=== PATIENT | female | born 1985 | race Caucasian/White ===

== ENCOUNTER 2017-07-14 04:37 | Inpatient (IN) | payer OTHER ==
[2017-07-14] VITALS (15 sets, daily range): BP systolic 92–117; BP diastolic 59–80; PULSE 54–174; RESP 16–20; TEMP 97.6–97.9; O2SAT 97–99
[~2017-07-14] VITALS: Ht 157.5 cm; Wt 61.7 kg
[2017-07-14] MEDS ORDERED: LACTATED RINGER'S 1000 ML INJ 1,000 ML IV PRN (04:58)
[2017-07-14] MEDS ORDERED: LACTATED RINGER'S 1000 ML INJ 1,000 ML IV SCH (04:58)
[2017-07-14] MEDS ORDERED: MINERAL OIL 10 ML VIAL TOPICAL PRN (05:00)
[2017-07-14] MEDS ORDERED: LIDOCAINE HCL 1% 50 ML VIAL INFIL PRN (05:00)
[2017-07-14] MEDS ORDERED: LIDOCAINE HCL 1% 50 ML VIAL I-DERMAL PRN (05:00)
[2017-07-14] MEDS ORDERED: SODIUM CHLORID 0.9% 500 ML INJ 500 ML IV PRN (05:00)
[2017-07-14] MEDS ORDERED: OXYTOCIN 30 UNITS-500ML PREMIX 500 ML IV ONE (05:00)
[2017-07-14] MEDS ORDERED: SODIUM CHLOR 0.9% 1000 ML INJ 1,000 ML IV PRN (05:18)
[2017-07-14] MEDS ORDERED: ONDANSETRON ODT 4 MG TAB PO PRN (05:30)
[2017-07-14] MEDS ORDERED: OXYTOCIN 30 UNITS-500ML PREMIX 500 ML IV SCH (05:30)
[2017-07-14] MEDS ORDERED: ACETAMINOPHEN 325 MG TAB PO PRN (05:30)
[2017-07-14] MEDS ORDERED: BENZOCAINE 20% TOPICAL SPRAY 60 ML CAN TOPICAL PRN (05:30)
[2017-07-14] MEDS ORDERED: DOCUSATE SODIUM 50 MG/SENNA 8.6 MG TAB PO PRN (05:30)
[2017-07-14] MEDS ORDERED: WITCH HAZEL 50%/GLYCERIN 12.5% 40 PAD JAR TOPICAL PRN (05:30)
[2017-07-14] MEDS ORDERED: ZOLPIDEM TARTRATE 5 MG TAB PO PRN (05:30)
[2017-07-14] MEDS ORDERED: SODIUM CHLORIDE 0.9% FLUSH 10 ML FLUSH IV FLUSH PRN (05:30)
[2017-07-14] MEDS ORDERED: ALUMINUM/MAGNESIUM/SIMETH 30 ML CUP PO PRN (05:30)
[2017-07-14 05:41] LABS: AUTOMATED NEUTROPHIL # 14.5 TH/MM3 (1.8-7.7); BASOPHIL # 0.1 TH/MM3 (0-0.2); BASOPHIL % 0.5 % (0.0-2.0); EOSINOPHIL # 0.1 TH/MM3 (0-0.4); EOSINOPHIL % 0.6 % (0.0-4.0); HEMATOCRIT 34.2 % (35.0-46.0); LYMPH % 19.4 % (9.0-44.0); MEAN CELL VOLUME 98.2 FL (80.0-100.0); MEAN CORPUSCULAR HEMOGLOBIN 34.5 PG (27.0-34.0); MEAN CORPUSCULAR HGB CONC 35.1 % (32.0-36.0); MEAN PLATELET VOLUME 8.8 FL (7.0-11.0); MONO % 8.8 % (0.0-8.0); MONOCYTE # 1.8 TH/MM3 (0-0.9); NEUT % 70.7 % (16.0-70.0); PLATELET COUNT 237 TH/MM3 (150-450); RED BLOOD COUNT 3.48 MIL/MM3 (4.00-5.30); WHITE BLOOD COUNT 20.5 TH/MM3 (4.0-11.0)
--- NOTE | 2017-07-14 05:46 | HHI.HP ---
HPI Chief Complaint Active labor Date Seen: Jul 14, 2017 Travel History International Travel<30 Days: No Contact w/Intl Traveler<30Days: No Known Affected Area: No History of Present Illness HPI Patient is a female who presents in active labor. She has received care in [place], [place]; established three months into her . She denies complications during the except for swelling of her extremities over the last few weeks. Weeks Gestation: 38 Para: 6 : 11 Miscarriage: 4 History Past Medical History Narrative Medical Anxiety PTSD MS Rosas Obstetric History Obstetric History G1 - full-term, induced, vaginal delivery, no complications G2 - miscarriage G3 - full-term, induced, vaginal delivery, no complications G4 - miscarriage G5 - full-term, vaginal delivery, no complications G6 - full-term, induced, vaginal delivery, no complications G7 - full-term, induced, vaginal delivery, infant with collapsed lung and hole in heart G8 - full-term, vaginal delivery, no complications G9 - miscarriage G10 - miscarriage G11 - current Past Surgical History Narrative Surgical Ear tubes x2 in childhood Family History Family History: Negative Social History Alcohol Use: No Tobacco Use: Yes (up to 1/2 pack/day) Substance Abuse: Yes (marijuana ) Allergies-Medications (Allergen,Severity, Reaction): Coded Allergies: No Known Allergies (Unverified , 07/14/17) Narrative Medication Vitamin B12 Potassium vitamin Review of Systems Except as stated in HPI: all other systems reviewed are Neg Physical Exam Vital Signs Date Time Temp Pulse Resp B/P (MAP) Pulse Ox O2 Delivery O2 Flow Rate FiO2 07/14/17 05:31 174 96/80 (85) 07/14/17 05:30 20 07/14/17 05:21 67 117/72 (87) Narrative GENERAL: Well-nourished, well-developed patient. SKIN: Warm and dry. HEAD: Normocephalic and atraumatic. EYES: No scleral icterus. No injection or drainage. ENT: No nasal drainage noted. Mucous membranes pink. Airway patent. NECK: Supple, trachea midline. No JVD. CARDIOVASCULAR: Regular rate and rhythm without murmurs, gallops, or rubs. RESPIRATORY: Breath sounds equal bilaterally. No accessory muscle use. BREASTS: Bilateral exam showed no masses , no retractions, no nipple discharge. ABDOMEN/GI: Abdomen soft, non-tender, bowel sounds present, no rebound, no guarding Gravid to 38 weeks size GENITOURINARY at admission: External Genitalia: intact and normal in appearance Dilatation: 10 cm Effacement: Complete Membranes: Intact FHT's: Category: 1 Baseline: 130 Reactive: + Variability: Moderate Decels: None EXTREMITIES: No cyanosis or edema. BACK: Nontender without obvious deformity. NEUROLOGICAL: Awake and alert. Motor and sensory grossly within normal limits. Five out of 5 muscle strength in all muscle groups. Normal speech. Caprini VTE Risk Assessment Caprini VTE Risk Assessment: No/Low Risk (score <= 1) Caprini Risk Assessment Model Point Value = 1 Point Value = 2 Point Value = 3 Point Value = 5 Age 41-60 Minor surgery BMI > 25 kg/m2 Swollen legs Varicose veins or History of unexplained or recurrent spontaneous Oral contraceptives or hormone replacement Sepsis (< 1 month) Serious lung disease, including pneumonia (< 1 month) Abnormal pulmonary function Acute myocardial infarction Congestive heart failure (< 1 month) History of inflammatory bowel disease Medical patient at bed rest Age 61-74 Arthroscopic surgery Major open surgery (> 45 min) Laparoscopic surgery (> 45 min) Malignancy Confined to bed (> 72 hours) Immobilizing plaster cast Central venous access Age >= 75 History of VTE Family history of VTE Factor V Leiden Prothrombin [id number] Lupus anticoagulant Anticardiolipin antibodies Elevated serum homocysteine Heparin-induced thrombocytopenia Other congenital or acquired thrombophilia Stroke (< 1 month) Elective arthroplasty Hip, pelvis, or leg fracture Acute spinal cord injury (< 1 month) Prophylaxis Regimen Total Risk Factor Score Risk Level Prophylaxis Regimen 0-1 Low Early ambulation 2 Moderate Order ONE of the following: *Sequential Compression Device (SCD) *Heparin 5000 units SQ BID 3-4 Higher Order ONE of the following medications: *Heparin 5000 units SQ TID *Enoxaparin/Lovenox 40 mg SQ daily (WT < 150 kg, CrCl > 30 mL/min) *Enoxaparin/Lovenox 30 mg SQ daily (WT < 150 kg, CrCl > 10-29 mL/min) *Enoxaparin/Lovenox 30 mg SQ BID (WT < 150 kg, CrCl > 30 mL/min) AND/OR *Sequential Compression Device (SCD) 5 or more Highest Order ONE of the following medications: *Heparin 5000 units SQ TID (Preferred with Epidurals) *Enoxaparin/Lovenox 40 mg SQ daily (WT < 150 kg, CrCl > 30 mL/min) *Enoxaparin/Lovenox 30 mg SQ daily (WT < 150 kg, CrCl > 10-29 mL/min) *Enoxaparin/Lovenox 30 mg SQ BID (WT < 150 kg, CrCl > 30 mL/min) AND *Sequential Compression Device (SCD) Data Data Vital Signs Reviewed: Yes Orders Orders Ob (2e) Additional Admit Info (07/14/17 04:40) Admit To Inpatient (07/14/17 ) Vital Signs (Adult) .Per protocol (07/14/17 04:58) Heart (07/14/17 04:58) Amnioinfusion (07/14/17 04:58) Urinary Catheter Management .ONCE (07/14/17 04:58) Lactated Ringer's 1000 Ml Inj (Lr 1000 M (07/14/17 04:58) Lactated Ringer's 1000 Ml Inj (Lr 1000 M (07/14/17 04:58) Sodium Chlorid 0.9% 500 Ml Inj (Ns 500 M (07/14/17 05:00) Sodium Chlor 0.9% 1000 Ml Inj (Ns 1000 M (07/14/17 05:18) Lidocaine 1% Inj (50 Ml) (Xylocaine 1% I (07/14/17 05:00) Fentanyl Inj (Fentanyl Inj) (07/14/17 05:00) Fentanyl Inj (Fentanyl Inj) (07/14/17 05:00) Complete Blood Count With Diff (07/14/17 04:58) Hold Clot (07/14/17 04:58) Abo/Rh Blood Type (07/14/17 04:58) Urinalysis - C+S If Indicated (07/14/17 04:58) Drug Screen, Random Urine (07/14/17 04:58) Resp Oxygen Non Rebreathe Mask (07/14/17 ) ^ Epidural / Intrathecal Infus (07/14/17 04:58) Oxytocin 30 Units-500ml Premix (Pitocin (07/14/17 05:00) Lidocaine 1% Inj (50 Ml) (Xylocaine 1% I (07/14/17 05:00) Light Mineral Oil (Muri-Lube Oil) (07/14/17 05:00) Specimen To Be Collected PRN (07/14/17 04:58) Specimen To Be Collected PRN (07/14/17 04:58) Vital Signs (Adult) .QSHIFT (07/14/17 05:30) Activity Oob Ad Kim (07/14/17 05:30) Ice / Cold Pack PRN (07/14/17 05:30) Discontinue Iv (07/14/17 05:30) Sitz Bath PRN (07/14/17 05:30) ^ Massage (07/14/17 05:30) ^ Rhogam (07/14/17 05:30) Urinary Catheter Management .PRN (07/14/17 05:30) Diet Regular Basic (07/14/17 Breakfast) Sodium Chloride 0.9% Flush (Ns Flush) (07/14/17 09:00) Sodium Chloride 0.9% Flush (Ns Flush) (07/14/17 05:30) Oxytocin 30 Units-500ml Premix (Pitocin (07/14/17 05:30) Acetaminophen (Tylenol) (07/14/17 05:30) Ibuprofen (Motrin) (07/14/17 05:30) Oxycodone-Acetamin 5-325 Mg (Percocet (07/14/17 05:30) Oxycodone-Acetamin 5-325 Mg (Percocet (07/14/17 05:30) Benzocaine 20% Top Spr (Americaine 20% T (07/14/17 05:30) Witch Abby-Glycerin Pad (Tucks Pads) (07/14/17 05:30) Docusate Sodium-Senna (Isabella-Colace) (07/14/17 05:30) Zolpidem (Ambien) (07/14/17 05:30) Yndlkeo-Zxyrq-Sbnysdt Inj (M-M-R Ii Inj) (07/14/17 16:00) Ewpv-Zfy-Hlgicg (Booster) Inj (Boostrix (07/14/17 16:00) Al-Mag Hy-Si 40-40-4 Mg/Ml Liq (Mag-Al P (07/14/17 05:30) Ondansetron Odt (Zofran Odt) (07/14/17 05:30) Labs Group B Strep unknown Laboratory Tests Test 07/14/17 04:50 White Blood Count 20.5 Red Blood Count 3.48 Hemoglobin 12.0 Hematocrit 34.2 Mean Corpuscular Volume 98.2 Mean Corpuscular Hemoglobin 34.5 Mean Corpuscular Hemoglobin Concent 35.1 Red Cell Distribution Width 13.0 Platelet Count 237 Mean Platelet Volume 8.8 Neutrophils (%) (Auto) 70.7 Lymphocytes (%) (Auto) 19.4 Monocytes (%) (Auto) 8.8 Eosinophils (%) (Auto) 0.6 Basophils (%) (Auto) 0.5 Neutrophils # (Auto) 14.5 Lymphocytes # (Auto) 4.0 Monocytes # (Auto) 1.8 Eosinophils # (Auto) 0.1 Basophils # (Auto) 0.1 CBC Comment DIFF FINAL Differential Comment Assessment/Plan Assessment and Plan Patient is a female who presents in active labor. She has received care in [place], [place]; established three months into her . * Admit to L&D in active labor. Discussed with OB hospitalist. Jayleen Mcclain MD R1 Jul 14, 2017 05:46
[2017-07-14] MEDS: IBUPROFEN 800 MG TAB PO PRN ×2 (05:47→19:26)
--- NOTE | 2017-07-14 05:49 | PD.OB.DELI ---
Weeks gestation: 38 Gest age assessed date: Jul 14, 2017 Pt started active labor?: Yes Active labor start date: Jul 14, 2017 Medical induction of labor?: No Artificial rupture of membrane: No Anesthesia: None Episiotomy: None Vaginal Delivery: Normal Presentation: Vertex Nuchal Cord: None Infant: Female Delivery date: Jul 14, 2017 Delivery time: 05:18 One Minute : 8 Five Minute : 9 Weight: 2655g Placenta: Spontaneous delivery, Intact, 3 vessel cord Laceration: No lacerations Estimated blood loss: 150 mL Jayleen Mcclain MD R1 Jul 14, 2017 05:49
--- NOTE | 2017-07-14 06:10 | HHI.FPPN ---
Addendum to progress note ADDENDUM Reason for addendum: Additonal documentation Additional information Patient O negative. She did not receive Rhogam during . Jayleen Mcclain MD R1 Jul 14, 2017 06:10
[2017-07-14] MEDS: SODIUM CHLORIDE 0.9% FLUSH 10 ML FLUSH IV FLUSH SCH (06:59)
[2017-07-14] MEDS: NICOTINE 14 MG/24 HR PATCH T-DERMAL SCH (11:34)
[2017-07-14] MEDS: oxyCODONE/ACETAMINOPHEN 5 MG/325 MG TAB PO PRN ×2 (11:34→22:36)
[2017-07-14 15:17] LABS: BACTERIA, URINE OCC /hpf; BILIRUBIN, URINE NEG (NEG); BLOOD, URINE LARGE (NEG); GLUCOSE,URINE NEG (NEG); KETONE, URINE NEG (NEG); MUCUS URINE FEW /lpf (OCC); NITRITE,URINE NEG (NEG); SQUAMOUS EPITHELIAL CELL URINE <1 /hpf (0-5); URINE LEUKOCYTE ESTERASE LARGE (NEG); WHITE BLOOD CELL CLUMPS RARE
[2017-07-14 15:18] LABS: URINE COLOR LIGHT-RED (YELLW/STRAW)
[2017-07-14] MEDS ORDERED: DIPHTH/TETANUS/ACEL PERTUSSIS (BOOSTER) 0.5 ML VIAL/PFS IM ONE (16:00)
[2017-07-14] MEDS ORDERED: MEASLES, MUMPS, RUBELLA VACCINE 0.5 ML VIAL SQ ONE (16:00)
[2017-07-14] MEDS ORDERED: REMOVE OLD PATCH T-DERMAL SCH (21:00)
[2017-07-15] MEDS: oxyCODONE/ACETAMINOPHEN 5 MG/325 MG TAB PO PRN ×4 (06:16→21:11)
[2017-07-15] MEDS: IBUPROFEN 800 MG TAB PO PRN ×2 (06:16→16:02)
[2017-07-15 08:00] VITALS: BP 91/56; PULSE 65; RESP 16; TEMP 98; O2SAT 98
--- NOTE | 2017-07-15 08:08 | HHI.OB ---
Subjective Post Day: 1 Remarks Pt seen and examined this morning. day # 1 AFVSS overnight. Decreased lochia. Denies dysuria. No breast tenderness. She is feeding the baby via breast. Appetite good. No nausea or vomiting. Patient has had a bowel movement and continues to pass bowel gas. Ambulating well. Denies calf pain or shortness of breath. Otherwise, she is doing well this morning and has no other concerns. Objective Vitals/I&O Vital Signs Date Time Temp Pulse Resp B/P (MAP) Pulse Ox O2 Delivery O2 Flow Rate FiO2 07/14/17 20:00 97.9 59 16 96/60 (70) 97 Objective Remarks GENERAL: Well-nourished, well-developed patient. CARDIOVASCULAR: Regular rate and rhythm without murmurs, gallops, or rubs. RESPIRATORY: Breath sounds equal bilaterally. No accessory muscle use. ABDOMEN/GI: Abdomen soft, non-tender. Fundus: Firm, non-tender at umbilicus. GENITOURINARY: Light to moderate bleeding. EXTREMITIES: No cyanosis or edema, non-tender, without signs of DVT. Medications and IVs Current Medications Medications (Trade) Dose Ordered Sig/Lupe Route Start Time Stop Time Status Last Admin Lactated Ringer's 1,000 ml @ 125 mls/hr Q8H IV 07/14/17 04:58 07/14/17 04:48 Lactated Ringer's 1,000 ml @ 3,000 mls/hr Q20M PRN IV 07/14/17 04:58 Sodium Chloride 1,000 ml @ 100 mls/hr Q10H PRN IV 07/14/17 05:18 (Xylocaine 1% Inj (50 ml)) 0.1 ml UNSCH X1 PRN I-DERMAL 07/14/17 05:00 07/17/17 04:59 (fentaNYL INJ) 50 mcg Q1H PRN IV PUSH 07/14/17 05:00 (fentaNYL INJ) 100 mcg Q1H PRN IV PUSH 07/14/17 05:00 (Xylocaine 1% Inj (50 ml)) 10 ml UNSCH X1 PRN INFIL 07/14/17 05:00 07/16/17 04:59 (Muri-Lube Oil) 10 ml UNSCH PRN TOPICAL 07/14/17 05:00 (NS Flush) 2 ml BID IV FLUSH 07/14/17 09:00 07/14/17 06:59 (NS Flush) 2 ml UNSCH PRN IV FLUSH 07/14/17 05:30 (Tylenol) 650 mg Q4H PRN PO 07/14/17 05:30 07/14/17 05:48 (Motrin) 800 mg Q8H PRN PO 07/14/17 05:30 07/15/17 06:16 (Percocet 5-325 Mg) 1 tab Q4H PRN PO 07/14/17 05:30 07/15/17 06:16 (Percocet 5-325 Mg) 2 tab Q4H PRN PO 07/14/17 05:30 07/14/17 22:36 (Americaine 20% Top Spr) 1 spray Q4H PRN TOPICAL 07/14/17 05:30 07/14/17 11:34 (Tucks Pads) 1 applic QID PRN TOPICAL 07/14/17 05:30 07/14/17 11:34 (Isabella-Colace) 2 tab Q12H PRN PO 07/14/17 05:30 07/14/17 11:34 (Ambien) 5 mg HS PRN PO 07/14/17 05:30 (Mag-Al Plus Susp Liq) 15 ml Q8H PRN PO 07/14/17 05:30 (Zofran Odt) 4 mg Q6H PRN PO 07/14/17 05:30 (Habitrol 14 Mg Patch.24 Hr) 1 patch DAILY T-DERMAL 07/14/17 11:30 07/14/17 11:34 Miscellaneous Information 1 HS T-DERMAL 07/14/17 21:00 Assessment/Plan Problem List: (1) (spontaneous vaginal delivery) ICD Codes: O80 - Encounter for full-term uncomplicated delivery Status: Acute Assessment and Plan 31y/o female who is day # 1 s/p . -Continue routine care. -Percocet and Motrin PRN pain. -Encouraged OOB. Advised pelvic rest for 6 wks. -Re: ctrl, she would like to discuss her options at her follow-up appointment. -Anticipate discharge today versus tomorrow pending clinical course. billy Mixon MD Discharge Planning Today versus tomorrow pending clinical course Isiah George MD R2 Jul 15, 2017 08:08
[2017-07-15] MEDS: NICOTINE 14 MG/24 HR PATCH T-DERMAL SCH (10:33)
[2017-07-15 20:00] VITALS: BP 86/56; PULSE 71; RESP 18; TEMP 99.2
[2017-07-15 20:31] LABS: AUTOMATED NEUTROPHIL # 7.6 TH/MM3 (1.8-7.7); BASOPHIL # 0.1 TH/MM3 (0-0.2); BASOPHIL % 0.7 % (0.0-2.0); EOSINOPHIL # 0.1 TH/MM3 (0-0.4); HEMOGLOBIN 10.4 GM/DL (11.6-15.3); LYMPH % 27.7 % (9.0-44.0); LYMPHOCYTE # 3.4 TH/MM3 (1.0-4.8); MEAN CELL VOLUME 99.2 FL (80.0-100.0); MEAN CORPUSCULAR HEMOGLOBIN 34.4 PG (27.0-34.0); MEAN CORPUSCULAR HGB CONC 34.7 % (32.0-36.0); MEAN PLATELET VOLUME 8.8 FL (7.0-11.0); MONOCYTE # 1.1 TH/MM3 (0-0.9); NEUT % 61.6 % (16.0-70.0); PLATELET COUNT 216 TH/MM3 (150-450); RED BLOOD COUNT 3.03 MIL/MM3 (4.00-5.30); RED CELL DISTRIBUTION WIDTH 13.1 % (11.6-17.2); WHITE BLOOD COUNT 12.4 TH/MM3 (4.0-11.0)
[2017-07-16] MEDS: IBUPROFEN 800 MG TAB PO PRN ×2 (04:20→10:38)
[2017-07-16] MEDS: oxyCODONE/ACETAMINOPHEN 5 MG/325 MG TAB PO PRN ×3 (04:20→16:56)
--- NOTE | 2017-07-16 07:44 | HHI.OB ---
Subjective Post Day: 2 Remarks Pt seen and examined this morning. day # 2 AFVSS overnight. Decreased lochia. Denies dysuria. No breast tenderness. She is feeding the baby via breast and bottle. Appetite good. No nausea or vomiting. Patient endorses having a bowel movement and continues to pass bowel gas. Ambulating well. Denies calf pain or shortness of breath. Otherwise, she is doing well this morning and has no other concerns. Objective Vitals/I&O Vital Signs Date Time Temp Pulse Resp B/P (MAP) Pulse Ox O2 Delivery O2 Flow Rate FiO2 07/15/17 20:00 99.2 71 18 86/56 (66) 07/15/17 08:00 98.0 65 16 91/56 (68) 98 Objective Remarks GENERAL: Well-nourished, well-developed patient. CARDIOVASCULAR: Regular rate and rhythm without murmurs, gallops, or rubs. RESPIRATORY: Breath sounds equal bilaterally. No accessory muscle use. ABDOMEN/GI: Abdomen soft, non-tender. Fundus: Firm, non-tender at umbilicus. GENITOURINARY: Light to moderate bleeding. EXTREMITIES: No cyanosis or edema, non-tender, without signs of DVT. Medications and IVs Current Medications Medications (Trade) Dose Ordered Sig/Lupe Route Start Time Stop Time Status Last Admin Lactated Ringer's 1,000 ml @ 125 mls/hr Q8H IV 07/14/17 04:58 07/14/17 04:48 Lactated Ringer's 1,000 ml @ 3,000 mls/hr Q20M PRN IV 07/14/17 04:58 Sodium Chloride 1,000 ml @ 100 mls/hr Q10H PRN IV 07/14/17 05:18 (Xylocaine 1% Inj (50 ml)) 0.1 ml UNSCH X1 PRN I-DERMAL 07/14/17 05:00 07/17/17 04:59 (fentaNYL INJ) 50 mcg Q1H PRN IV PUSH 07/14/17 05:00 (fentaNYL INJ) 100 mcg Q1H PRN IV PUSH 07/14/17 05:00 (Muri-Lube Oil) 10 ml UNSCH PRN TOPICAL 07/14/17 05:00 (NS Flush) 2 ml BID IV FLUSH 07/14/17 09:00 07/14/17 06:59 (NS Flush) 2 ml UNSCH PRN IV FLUSH 07/14/17 05:30 (Tylenol) 650 mg Q4H PRN PO 07/14/17 05:30 07/14/17 05:48 (Motrin) 800 mg Q8H PRN PO 07/14/17 05:30 07/16/17 04:20 (Percocet 5-325 Mg) 1 tab Q4H PRN PO 07/14/17 05:30 07/15/17 16:02 (Percocet 5-325 Mg) 2 tab Q4H PRN PO 07/14/17 05:30 07/16/17 04:20 (Americaine 20% Top Spr) 1 spray Q4H PRN TOPICAL 07/14/17 05:30 07/14/17 11:34 (Tucks Pads) 1 applic QID PRN TOPICAL 07/14/17 05:30 07/14/17 11:34 (Isabella-Colace) 2 tab Q12H PRN PO 07/14/17 05:30 07/14/17 11:34 (Ambien) 5 mg HS PRN PO 07/14/17 05:30 (Mag-Al Plus Susp Liq) 15 ml Q8H PRN PO 07/14/17 05:30 (Zofran Odt) 4 mg Q6H PRN PO 07/14/17 05:30 (Habitrol 14 Mg Patch.24 Hr) 1 patch DAILY T-DERMAL 07/14/17 11:30 07/15/17 10:33 Miscellaneous Information 1 HS T-DERMAL 07/14/17 21:00 Assessment/Plan Problem List: (1) (spontaneous vaginal delivery) ICD Codes: O80 - Encounter for full-term uncomplicated delivery Status: Acute Assessment and Plan 31y/o female who is day #2 s/p . -Continue routine care. -Percocet and Motrin PRN pain. -Encouraged OOB. Advised pelvic rest for 6 wks. -Re: ctrl, she would like to discuss her options at her follow-up appointment. -Anticipate discharge today dw Dr. Mimi MD Discharge Planning Today Isiah George MD R2 Jul 16, 2017 07:44
[2017-07-16] MEDS ORDERED: IBUP1TAB7 PO (07:45)
[2017-07-16] MEDS ORDERED: PERI PO (07:45)
--- NOTE | 2017-07-16 07:45 | HHI.DCPOC ---
Discharge Care Plan Diagnosis: (1) (spontaneous vaginal delivery) Report Symptoms to Your Doctor -Temperature above 100.5 degrees -Redness, of incision or excessive or foul smelling drainage -Unusual pain or calf pain -Increased vaginal bleeding -Painful or difficulty urinating -Feelings of extreme sadness or anxiety after 2 weeks Goals to Promote Your Health * To prevent worsening of your condition and complications * To maintain your health at the optimal level Directions to Meet Your Goals Take your medications as prescribed Follow your dietary instruction Follow activity as directed Ensure plenty of rest for recovery Drink fluids for hydration Keep your appointments as scheduled Take your immunizations and boosters as scheduled If your symptoms worsen call your PCP, if no PCP go to Urgent Care Center or Emergency Room Smoking is Dangerous to Your Health. Avoid second hand smoke Call the 24-hour crisis hotline for domestic abuse at Isiah George MD R2 Jul 16, 2017 07:45
[2017-07-16 08:00] VITALS: BP 97/62; PULSE 70; RESP 16; TEMP 98.1
[2017-07-16] MEDS: SODIUM CHLORIDE 0.9% FLUSH 10 ML FLUSH IV FLUSH SCH (09:00)
[2017-07-16 10:02] LABS: HEPATITIS A AB IGM NEGATIVE (NEGATIVE); HEPATITIS B CORE AB IGM NEGATIVE (NEGATIVE); HEPATITIS B SURFACE ANTIGEN NEGATIVE (NEGATIVE); HEPATITIS C AB IgG NEGATIVE (NEGATIVE)
[2017-07-16] MEDS: NICOTINE 14 MG/24 HR PATCH T-DERMAL SCH (10:38)
== END 2017-07-16 16:57 | disposition home or self-care (01) | DRG 775 ==
LOC: HOBED 04:37 → H2EB 04:42 → H1EA 07:37
PROVIDERS: ADMIT Obstetrics & Gynecology Maternal & Fetal Medicine; ATTEND Obstetrics & Gynecology Maternal & Fetal Medicine
PROC: 10E0XZZ Delivery of Products of Conception, External Approach (ICD-10-PCS; principal; 2017-07-14)
DX: O99.344 Other mental disorders complicating childbirth (principal); F43.10 Post-traumatic stress disorder, unspecified; O99.334 Smoking (tobacco) complicating childbirth; Z37.0 Single live birth; Z3A.38 38 weeks gestation of pregnancy
CPT/HCPCS: 80074; 80307; 81001; 85025; 85461; 86077; 86592; 86703; 86762; 86850; 86870; 86900; 86901; 86920; 86922; 87086; 90384; 90715; 99283; J2590; J2790; J7120